=== PATIENT | female | born 1935 | race Two or more races ===

== ENCOUNTER 2022-11-06 19:56 | Emergency (ER) | payer OTHER ==
[~2022-11-06] VITALS: Ht 160 cm; Wt 56.7 kg
[2022-11-06] MEDS ORDERED: GABAPENTIN300 M2 PO (20:27)
[2022-11-06] MEDS ORDERED: VERAPAMIL HCL240 M1 PO (20:28)
[2022-11-06] MEDS ORDERED: TUSNEL LIQUID178 ML PO (23:55)
[2022-11-06] MEDS ORDERED: PROAIR RESPICL90 MCG IH (23:55)
[2022-11-06] MEDS ORDERED: ZITHROMAX500 MG PO (23:55)
== END 2022-11-07 00:35 | disposition home or self-care (01) ==
LOC: ER 19:56
DX: U07.1 COVID-19 (principal); R40.0 Somnolence; I10 Essential (primary) hypertension